=== PATIENT | female | born 1990 | race Caucasian/White ===

== ENCOUNTER 2022-08-01 04:07 | Emergency (ER) | payer SELFPAY ==
[~2022-08-01] VITALS: Ht 157.5 cm; Wt 50.0 kg
[~2022-08-01 04:07] MED LIST: BACTRIM DS1 TAB PO; LORTAB 10 PO; LORTAB 5 OR; LORTAB 5/3255 MG PO; ZOFRAN ODT4 MG PO
[2022-08-01 04:10] VITALS: BP 143/101
[2022-08-01 04:15] VITALS: BP 143/100
[2022-08-01 05:08] LABS: HEMATOCRIT 40.1 % (37.0-47.0); HEMOGLOBIN 13.1 g/dl (12.0-16.0); IMMATURE GRANULOCYTES 0.6 % (0.0-5.0); MEAN CELL VOLUME 85.1 fL CALC (80.0-100.0); MEAN CORPUSCULAR HGB 27.8 pG CALC (26.0-32.0); MEAN CORPUSCULAR HGB CONC 32.7 g/dL CAL (32.0-36.0); NEUT# 4.28 thou/uL (2.00-7.15); RED BLOOD COUNT 4.71 mill/uL (4.20-5.60); RED CELL DISTRI WIDTH 14.6 % (11.5-15.5)
[2022-08-01 05:18] LABS: ALBUMIN 4.9 g/dL (3.2-5.0); ALKALINE PHOSPHATASE 79 u/l (38-126); ANION GAP 14 (6-22 (CALC)); BILIRUBIN, TOTAL 0.4 mg/dL (0.0-1.4); BUN 19 mg/dL (7-17); BUN/CREATININE RATIO 23 (12-20 (CALC)); CARBON DIOXIDE 27 mmol/l (22-30); CHLORIDE 101 mmol/l (95-108); CREATININE 0.8 mg/dL (0.5-1.0); ETHYL ALCOHOL 0 mg/dl (0-30); GFR FOR AFR.AMER. > 60 ML/MIN (>=60 (CALC)); GFR OTHER RACES > 60 ML/MIN (>=60 (CALC)); MAGNESIUM 2.1 mg/dL (1.6-2.3); SGOT/AST 37 u/l (14-36); SODIUM 138 mmol/l (137-146); TOTAL PROTEIN 9.1 g/dL (6.3-8.2)
== END 2022-08-01 05:00 | disposition left against medical advice (07) | DRG 918 ==
LOC: ED 04:07
PROVIDERS: Emergency Medicine
DX: T40.411A Poisoning by fentanyl or fentanyl analogs, accidental (unintentional), initial encounter (principal); Z53.29 Procedure and treatment not carried out because of patient's decision for other reasons